=== PATIENT | female | born 1965 | race Caucasian/White ===

== ENCOUNTER 2018-03-10 07:02 | Inpatient (IN) | payer OTHER ==
[~2018-03-10 07:02] MED LIST: DESFLURANE 15 MIN; LIDOCAINE 2% (SDV) 5 ML INJ
[2018-03-10] MEDS ORDERED: SOD CHLORIDE 0.9% 1,000 ML IV (10:00)
[2018-03-10] MEDS: CEFAZOLIN 2 GM/50 ML (PMX) 50 ML IVPB (10:00)
[2018-03-10] MEDS ORDERED: HYDROmorphONE 1 MG/5 ML IV SYRINGE IV (12:30)
[2018-03-10] MEDS ORDERED: EPHEDrine SULFATE 50 MG/5 ML SYG IV (12:30)
[2018-03-10] MEDS ORDERED: hydrALAzine 20 MG INJ IV (12:30)
[2018-03-10] MEDS ORDERED: METOCLOPRAMIDE 10 MG INJ IV (12:30)
[2018-03-10] MEDS ORDERED: OXYCODONE/ACETAMINOPHEN (5/325) TAB PO ×2 (12:30)
[2018-03-10] MEDS ORDERED: LABETALOL HCL 20MG INJ IV (12:30)
[2018-03-10] MEDS ORDERED: FENTAnyl 50 MCG/ML VIAL IV ×3 (12:30)
[2018-03-10] MEDS ORDERED: FENTAnyl 50 MCG/ML VIAL (13:27)
[2018-03-10] MEDS: ISOSULFAN BLUE 1% 5 ML INJ SC (13:57)
[2018-03-10] MEDS ORDERED: GLYCOPYRROLATE 0.4 MG INJ (14:50)
[2018-03-10] MEDS ORDERED: ROCURONIUM 50 MG INJ (14:50)
[2018-03-10] MEDS ORDERED: CEFAZOLIN 1 GM INJ (14:50)
[2018-03-10] MEDS ORDERED: PROPOFOL 20 ML (14:50)
[2018-03-10] MEDS ORDERED: SUCCINYLCHOLINE CHLORIDE 100 MG/5 ML SYG IV (14:50)
[2018-03-10] MEDS ORDERED: NEOSTIGMINE 3 MG/3 ML SYRINGE (14:50)
[2018-03-10] MEDS ORDERED: morphine 2 MG INJ IV (15:00)
[2018-03-10] MEDS: ONDANSETRON 4 MG INJ IV (15:13)
[2018-03-10] MEDS: DIPHENHYDRAMINE 50 MG INJ IV (15:14)
[2018-03-10] MEDS: MEPERIDINE 25 MG INJ IV (15:15)
[2018-03-10] MEDS: HYDROmorphONE 1 MG/5 ML IV SYRINGE IV ×3 (15:33→15:46)
[2018-03-10] MEDS: D5W-0.45 NACL + KCL 20 MEQ 1,000 ML IV (16:39)
[2018-03-10] MEDS ORDERED: HYDROCODONE/APAP (5/325) TAB PO (18:30)
[2018-03-11] MEDS: ACETAMINOPHEN 1000MG/100ML IV 100 ML IVPB ×2 (00:49→10:52)
[2018-03-11] MEDS: ONDANSETRON 4 MG INJ IV (00:49)
[2018-03-11] MEDS: D5W-0.45 NACL + KCL 20 MEQ 1,000 ML IV (00:50)
[2018-03-11] MEDS ORDERED: morphine SULFATE/PF (2 MG/2 ML) SYG IV (01:00)
[2018-03-11 05:01] LABS: ADD MAN DIFF? NO
[2018-03-11 05:09] LABS: BASOPHILS % 0.2 % (0.0-2.0); EOSINOPHILS # 0.1 10^3/ul (0.0-0.5); EOSINOPHILS % 0.8 % (0.0-7.0); HEMATOCRIT 35.3 % (37.0-47.0); HEMOGLOBIN 11.2 g/dl (12.0-16.0); LYMPHOCYTES # 1.4 10^3/ul (0.8-2.9); LYMPHOCYTES % 15.1 % (15.0-51.0); MEAN CORPUSCULAR HEMOGLOBIN 30.2 pg (29.0-33.0); MEAN CORPUSCULAR HGB CONC 31.7 g/dl (32.0-37.0); MEAN CORPUSCULAR VOLUME 95.1 fl (82.0-101.0); MEAN PLATELET VOLUME 9.2 fl (7.4-10.4); MONOCYTE # 0.4 10^3/ul (0.3-0.9); MONOCYTES % 4.4 % (0.0-11.0); NEUTROPHIL # 7.6 10^3/ul (1.6-7.5); PLATELET COUNT 262 10^3/UL (140-415); RED BLOOD COUNT 3.71 10^6/ul (4.20-5.40); RED CELL DISTRIBUTION WIDTH 14.2 % (11.5-14.5)
[2018-03-11 05:09] LABS: WHITE BLOOD COUNT 9.6 10^3/ul (4.8-10.8)
[2018-03-11 05:37] LABS: ANION GAP 11 (5-13); BLOOD UREA NITROGEN 7 mg/dl (7-20); CALCIUM 9.3 mg/dl (8.4-10.2); CARBON DIOXIDE 26 mmol/L (21-31); CHLORIDE 105 mmol/L (97-110); CREATININE 0.58 mg/dl (0.44-1.00); Estimated GFR > 60 mL/min (>60); GLUCOSE 130 mg/dl (70-220); SODIUM 142 mmol/L (135-144)
[2018-03-11] MEDS: LEVOTHYROXINE 150 MCG TAB PO (08:09)
== END 2018-03-11 16:18 | disposition home or self-care (01) | DRG 580 ==
LOC: SDS 07:02 → REC 14:44 → MS1 16:13
PROC: 0HBT0ZZ Excision of Right Breast, Open Approach (ICD-10-PCS; principal; 2018-03-10 13:00)
PROC: 07B50ZX Excision of Right Axillary Lymphatic, Open Approach, Diagnostic (ICD-10-PCS; 2018-03-10 13:00)
DX: C50.911 Malignant neoplasm of unspecified site of right female breast (principal); C77.3 Secondary and unspecified malignant neoplasm of axilla and upper limb lymph nodes; E03.9 Hypothyroidism, unspecified; Z92.21 Personal history of antineoplastic chemotherapy; Z80.3 Family history of malignant neoplasm of breast
CPT/HCPCS: 80048; 84443; 84703; 85025; 88307; 88331